=== PATIENT | male | born 2005 | race Caucasian/White ===

== ENCOUNTER 2023-03-13 21:54 | Observation (INO) | payer BC ==
[2023-03-13] MEDS ORDERED: SODIUM CHLORIDE 0.9% 1,000 ML IV STA (22:20)
--- NOTE | 2023-03-13 22:21 | ED ---
Abdominal Pain HPI - General Chief Complaint: Abdominal Pain Stated Complaint: Abdominal Pain Time Seen by Provider: 03/13/23 22:00 Source: patient, EMS Mode of arrival: EMS Limitations: no limitations - History of Present Illness Initial Comments: Hank is a 18-year-old male with no significant past medical history who came to our emergency department as a transfer from [place]. Patient went to [facility] for acute abdominal pain. Patient reports that he has been having abdominal pain for approximately 2 days, he attempted to eat a piece of toast with peanut butter on it this morning and developed severe stabbing abdominal pain. Mom reports that he was curled up in the position for about 4 hours before he agreed to go to the emergency department. At outside emergency Department blood work was obtained he had leukocytosis with a white count of 18, normal kidney and liver function and a computed tomography scan of abdomen which was suggestive of acute cholecystitis wasn't edematous distended gallbladder. Patient received antiemetics and antibiotics prior to transfer, he is resting comfortably now. - Related Data Home Medications Medication Instructions Recorded Confirmed No Known Home Medications 03/13/23 03/13/23 Allergies Allergy/AdvReac Type Severity Reaction Status Date / Time No Known Allergies Allergy Verified 03/13/23 22:20 Review of Systems ROS Statement: Those systems with pertinent positive or pertinent negative responses have been documented in the HPI. ROS Other: All systems not noted in ROS Statement are negative. Past Medical History Past Medical History: No Reported History History of Any Multi-Drug Resistant Organisms: None Reported Past Surgical History: No Surgical Hx Reported Past Psychological History: No Psychological Hx Reported Smoking Status: Never smoker Past Alcohol Use History: Occasional Past Drug Use History: Marijuana General Exam - General Exam Comments Initial Comments: Physical Exam GENERAL: Patient is well-developed and well-nourished HENT: Normocephalic, Atraumatic. EYES: PERRL, EOMI PULMONARY: Unlabored respirations. No audible rales rhonchi or wheezing was noted. CARDIOVASCULAR: There is a regular rate and rhythm without any murmurs gallops or rubs. ABDOMEN: Tenderness to palpation RUQ and RLQ SKIN: Skin is clear with no lesions or rashes and otherwise unremarkable. : Deferred NEUROLOGIC: Patient is alert and oriented x3. Moving all extremities spontaneously MUSCULOSKELETAL: Normal extremities with adequate strength and full range of motion. No lower extremity swelling or edema. No calf tenderness. PSYCHIATRIC: Normal psychiatric evaluation. Limitations: no limitations Course Vital Signs 03/13/23 22:05 Temperature 98.4 F Pulse Rate 77 Respiratory 18 Rate Blood Pressure 97/56 O2 Sat by Pulse 98 Oximetry Medical Decision Making - Medical Decision Making Was pt. sent in by a medical professional or institution (, PA, [employer], urgent care, hospital, or senior care...) When possible be specific @ -Yes, transfer from [facility] Dr. Oneal Did you speak to anyone other than the patient for history (EMS, parent, family, police, friend...)? What history was obtained from this source @ -Yes mother, EMS Did you review nursing and triage notes (agree or disagree)? Why? @ -I reviewed and agree with nursing and triage notes Were old charts reviewed (outside hosp., previous admission, EMS record, old EKG, old radiological studies, urgent care reports/EKG's, senior care records)? Report findings @ -No old charts were reviewed Differential Diagnosis (chest pain, altered mental status, abdominal pain women, abdominal pain men, vaginal bleeding, weakness, fever, dyspnea, syncope, headache, dizziness, GI bleed, back pain, seizure, CVA, palpatations, mental health, musculoskeletal)? @ -Differential Abdominal Pain Men: Appendicitis, cholecystitis, diverticulosis, ischemic bowel, pancreatitis, hepatitis, UTI, gastroenteritis, AAA, incarcerated hernia, bowel obstruction, constipation, inflammatory bowel, hepatitis, peptic ulcer disease, splenic infarction, perforated viscus, testicular torsion, this is not meant to be an all-inclusive list EKG interpreted by me (3pts min.). @ -As above X-rays interpreted by me (1pt min.). @ -None done CT interpreted by me (1pt min.). @ -None done U/S interpreted by me (1pt. min.). @ -None done What testing was considered but not performed or refused? (CT, X-rays, U/S, labs)? Why? @ -Ultrasound was considered as its physical standard for imaging of the gallbladder however after discussion with the surgeon was felt that it is not necessary as the patient will need a cholecystectomy regardless of findings What meds were considered but not given or refused? Why? @ -None Did you discuss the management of the patient with other professionals (professionals i.e. , PA, [employer], lab, RT, psych nurse, transition social worker, digital retoucher, teacher, aoc aadc operations staff officer, case assistant)? Give summary @ -Yes, Dr. Fox Was smoking cessation discussed for >3mins.? @ -No Was critical care preformed (if so, how long)? @ -No Were there social determinants of health that impacted care today? How? (Homelessness, low income, unemployed, alcoholism, drug addiction, transportation, low edu. Level, literacy, decrease access to med. care, retirement, rehab)? @ -No Was there de-escalation of care discussed even if they declined (Discuss DNR or withdrawal of care, Hospice)? DNR status @ -No What co-morbidities impacted this encounter? (DM, HTN, Smoking, COPD, CAD, Cancer, CVA, ARF, Chemo, Hep., AIDS, mental health diagnosis, sleep apnea, morbid obesity)? @ -None Was patient admitted / discharged? Hospital course, mention meds given and route, prescriptions, significant lab abnormalities, going to OR and other pertinent info. @ -Admit Patient was seen and evaluated, history is obtained from patient and review of transfer packet. Patient with an acute cholecystitis, antibiotics, antiemetics, pain management and IV fluids were ordered. accepts the admission Undiagnosed new problem with uncertain prognosis? @ -No Drug Therapy requiring intensive monitoring for toxicity (Heparin, Nitro, Insulin, Cardizem)? @ -No Were any procedures done? @ -No Diagnosis/symptom? @ -Acute cholecystitis Acute, or Chronic, or Acute on Chronic? @ -default Uncomplicated (without systemic symptoms) or Complicated (systemic symptoms)? @ -default Side effects of treatment? @ -No Exacerbation, Progression, or Severe Exacerbation? @ -No Poses a threat to life or bodily function? How? (Chest pain, [place], DC, pneumonia, PE, COPD, DKA, ARF, appy, cholecystitis, CVA, Diverticulitis, Homicidal, Suicidal, threat to staff... and all critical care pts) @ -No Disposition Clinical Impression: Acute cholecystitis Disposition: ADMITTED IP TO THIS [facility] Condition: Stable Is patient prescribed a controlled substance at d/c from ED?: No Referrals: None,Stated [Primary Care Provider] - 1-2 days
[2023-03-13] MEDS ORDERED: PIPERACILLIN-TAZOBACTAM 3.375 GM in SODIUM CHLORIDE 0.9% 100 ML IVPB STA (22:22)
[2023-03-13] MEDS ORDERED: MORPHINE SULFATE 4 MG/ML SYRINGE IV PRN (22:46)
[2023-03-13] MEDS ORDERED: NALOXONE 0.4 MG/ML 1 ML VIAL IV PRN (22:46)
[2023-03-13] MEDS ORDERED: ONDANSETRON 4 MG/2 ML VIAL IVP PRN (22:46)
[2023-03-13] MEDS: SODIUM CHLORIDE 0.9% 1,000 ML IV SCH (23:18)
[2023-03-13 23:27] LABS: Basophils % (A) 0 %; Eosinophils # (A) 0.1 k/uL (0-0.7); Eosinophils % (A) 1 %; HCT 42.5 % (39.0-53.0); HGB 14.5 gm/dL (13.0-17.5); Lymphocytes % (A) 7 %; MCH 31.3 pg (25.0-35.0); MCHC 34.2 g/dL (31.0-37.0); MCV 91.3 fL (80.0-100.0); Mean Platelet Volume 7.6; Monocytes # (A) 0.7 k/uL (0-1.0); Monocytes % (A) 5 %; Neutrophils # (A) 12.6 k/uL (1.3-7.7); Neutrophils % (A) 87 %; Platelet Count 178 k/uL (150-450); RBC 4.65 m/uL (4.30-5.90); WBC 14.5 k/uL (4.0-11.0)
[2023-03-13 23:38] LABS: ALT 19 U/L (4-49); AST 20 U/L (17-59); African American GFR (CKD) >90 (>60 ml/min/1.73 sqM); Alkaline Phosphatase 59 U/L (38-126); Anion Gap 11 mmol/L; Blood Urea Nitrogen 8 mg/dL (9-20); Calcium 8.7 mg/dL (8.4-10.2); Carbon Dioxide 20 mmol/L (22-30); Chloride 106 mmol/L (98-107); Glucose 101 mg/dL (74-99); Lipase 31 U/L (23-300); Non-African American GFR(CKD) >90 (>60 ml/min/1.73 sqM); Potassium 4.1 mmol/L (3.5-5.1); Sodium 137 mmol/L (137-145); Total Bilirubin 0.7 mg/dL (0.2-1.3); Total Protein 6.4 g/dL (6.3-8.2)
[2023-03-14] MEDS: PIPERACILLIN-TAZOBACTAM 3.375 GM in SODIUM CHLORIDE 0.9% 100 ML IVPB SCH ×3 (06:45→23:26)
--- NOTE | 2023-03-14 09:46 | P.GSHP ---
History of Present Illness H&P Date: 03/14/23 CHIEF COMPLAINT: Abdominal HISTORY OF PRESENT ILLNESS: This is a 18-year-old male who presented to the hospital right upper quadrant abdominal pain 2 days. He was a transfer from [facility]. Patient had reported the pain as severe and stabbing. The computed tomography scan at [place] reports suggestive of acute cholecystitis. Patient had elevated white count. He had been having sweats with nausea and vomiting. He reports decrease in appetite. No prior surgical history. Denies any medical history. PAST MEDICAL HISTORY: See below PAST SURGICAL HISTORY: See below MEDICATIONS: See below ALLERGIES: See below SOCIAL HISTORY: No illicit drug use. REVIEW OF SYSTEMS: CONSTITUTIONAL: Denies fever or chills. HEENT: Denies blurred vision, vision changes, or eye pain. Denies hemoptysis CARDIOVASCULAR: Denies chest pain or pressure. RESPIRATORY: No shortness of breath. GASTROINTESTINAL: See HPI for pertinent findings HEMATOLOGIC: Denies bleeding disorders. GENITOURINARY: Denies any blood in urine or increased urinary frequency. SKIN: Denies pruitis. Denies rash. PHYSICAL EXAM: VITAL SIGNS: Reviewed GENERAL: Well-developed in no acute distress. ABDOMEN: Soft. Nondistended. Tenderness with palpation of the right upper quadrant NEUROLOGIC: Alert and oriented. Cranial nerves II through XII grossly intact. LABORATORY DATA: WBC 14.5 Hgb 14.5 platelets 178 Na 137 potassium 4.1 creatinine 0.64 LFTs normal lipase 31 IMAGING: ASSESSMENT: 1. Acute cholecystitis PLAN: -Patient is scheduled for laparoscopic cholecystectomy today with Dr. Mclean -Keep patient nothing by mouth -Continue IV antibiotics -Continue IV fluids -Continue supportive care Physician Toll Lineman note has been reviewed by physician. Signing provider agrees with the documented findings, assessment, and plan of care. Past Medical History Past Medical History: No Reported History History of Any Multi-Drug Resistant Organisms: None Reported Past Surgical History: No Surgical Hx Reported Past Psychological History: No Psychological Hx Reported Smoking Status: Never smoker Past Alcohol Use History: Occasional Past Drug Use History: Marijuana Medications and Allergies Home Medications Medication Instructions Recorded Confirmed Type No Known Home Medications 03/13/23 03/13/23 History Allergies Allergy/AdvReac Type Severity Reaction Status Date / Time No Known Allergies Allergy Verified 03/13/23 22:20 Surgical - Exam Vital Signs Temp Pulse Resp BP Pulse Ox 98.4 F 77 18 97/56 98 03/13/23 22:05 03/13/23 22:05 03/13/23 22:05 03/13/23 22:05 03/13/23 22:05 Results - Labs 03/13/23 23:00 03/13/23 23:00 Abnormal Lab Results - Last 24 Hours (Table) 03/13/23 03/13/23 Range/Units 23:00 23:00 WBC 14.5 H (4.0-11.0) k/uL Neutrophils # 12.6 H (1.3-7.7) k/uL Carbon Dioxide 20 L (22-30) mmol/L BUN 8 L (9-20) mg/dL Creatinine 0.64 L (0.66-1.25) mg/dL Glucose 101 H (74-99) mg/dL Diabetes panel 03/13/23 Range/Units 23:00 Sodium 137 (137-145) mmol/L Potassium 4.1 (3.5-5.1) mmol/L Chloride 106 (98-107) mmol/L Carbon Dioxide 20 L (22-30) mmol/L BUN 8 L (9-20) mg/dL Creatinine 0.64 L (0.66-1.25) mg/dL Glucose 101 H (74-99) mg/dL Calcium 8.7 (8.4-10.2) mg/dL AST 20 (17-59) U/L ALT 19 (4-49) U/L Alkaline Phosphatase 59 (38-126) U/L Total Protein 6.4 (6.3-8.2) g/dL Albumin 4.0 (3.5-5.0) g/dL Calcium panel 03/13/23 Range/Units 23:00 Calcium 8.7 (8.4-10.2) mg/dL Albumin 4.0 (3.5-5.0) g/dL Pituitary panel 03/13/23 Range/Units 23:00 Sodium 137 (137-145) mmol/L Potassium 4.1 (3.5-5.1) mmol/L Chloride 106 (98-107) mmol/L Carbon Dioxide 20 L (22-30) mmol/L BUN 8 L (9-20) mg/dL Creatinine 0.64 L (0.66-1.25) mg/dL Glucose 101 H (74-99) mg/dL Calcium 8.7 (8.4-10.2) mg/dL Adrenal panel 03/13/23 Range/Units 23:00 Sodium 137 (137-145) mmol/L Potassium 4.1 (3.5-5.1) mmol/L Chloride 106 (98-107) mmol/L Carbon Dioxide 20 L (22-30) mmol/L BUN 8 L (9-20) mg/dL Creatinine 0.64 L (0.66-1.25) mg/dL Glucose 101 H (74-99) mg/dL Calcium 8.7 (8.4-10.2) mg/dL Total Bilirubin 0.7 (0.2-1.3) mg/dL AST 20 (17-59) U/L ALT 19 (4-49) U/L Alkaline Phosphatase 59 (38-126) U/L Total Protein 6.4 (6.3-8.2) g/dL Albumin 4.0 (3.5-5.0) g/dL
[2023-03-14] MEDS: SODIUM CHLORIDE 0.9% 1,000 ML IV SCH (11:54)
[2023-03-14] MEDS ORDERED: HEPARIN SODIUM,PORCINE/PF 5,000 UNIT/0.5 ML SYRINGE SQ ONE (15:50)
[2023-03-14] MEDS ORDERED: IV FLUID CONTINUATION 1,000 ML IV ONE (16:00)
[2023-03-14] MEDS ORDERED: ONDANSETRON 4 MG/2 ML VIAL IVP ONE (16:22)
[2023-03-14] MEDS ORDERED: DEXAMETHASONE SOD PHOSPHATE 4 MG/ML 1 ML VIAL IVP ONE (16:22)
[2023-03-14] MEDS ORDERED: MIDAZOLAM 2 MG/2 ML VIAL ONE (16:43)
[2023-03-14] MEDS ORDERED: fentaNYL (PF) 50 MCG/ML 2 ML AMP ONE (16:43)
[2023-03-14] MEDS ORDERED: NEOSTIGMINE 1 MG/ML 10 ML VIAL ONE (16:43)
[2023-03-14] MEDS ORDERED: HEPARIN SODIUM,PORCINE 5,000 UNIT/ML 1 ML VIAL SQ ONE (16:43)
[2023-03-14] MEDS ORDERED: ROCURONIUM 10 MG/ML (5 ML VIAL) IV ONE (16:43)
[2023-03-14] MEDS ORDERED: LIDOCAINE 1% INJ 10MG/ML (20 ML MDV) ONE (16:43)
[2023-03-14] MEDS ORDERED: PROPOFOL 10 MG/ML 20 ML VIAL IV ONE (16:43)
[2023-03-14] MEDS ORDERED: GLYCOPYRROLATE 0.2 MG/ML 2 ML VIAL ONE (16:43)
[2023-03-14] MEDS ORDERED: SUCCINYLCHOLINE CHLORIDE 200 MG/10 ML VIAL IV ONE (16:43)
[2023-03-14] MEDS ORDERED: BUPIVACAINE (PF) 0.25% 30 ML VIAL SQ ONE (17:03)
[2023-03-14] MEDS ORDERED: LACTATED RINGERS 1,000 ML IV ONE ×2 (17:20→17:26)
--- NOTE | 2023-03-14 17:24 | P.OP ---
Date of Procedure: 03/14/23 Preoperative Diagnosis: Cholecystitis Postoperative Diagnosis: Cholecystitis Procedure(s) Performed: Laparoscopic cholecystectomy Anesthesia: XENIA Surgeon: Alexandr Mclean Estimated Blood Loss (ml): 10 Pathology: other (Gallbladder) Condition: stable Disposition: PACU Description of Procedure: The patient was placed on the operating table. The patient received a general endotracheal tube anesthesia. The patients abdomen was prepped and draped in the usual sterile fashion. Through an infraumbilical stab incision, the fascia of the anterior abdominal wall was grasped with a pair of Kochers and then the Veress needle was placed in the peritoneal cavity. Position of the Veress needle was confirmed with positive drop test. The abdomen was then insufflated. After adequate insufflation, the 10 mm trocar was placed in the peritoneal cavity. Following this the laparoscope was placed in the peritoneal cavity. The patient was placed in the head-up, right side up position and then a 5 mm trocar was placed in the right lateral and right subcostal position under direct visualization. A 8 mm trocar was placed in the epigastric position. The gallbladder was grasped in the fundus and infundibulum. The patient had a very large liver. Traction on the gallbladder was placed in the lateral and the cephalad positions. The triangle of Calot was visualized.. The cystic duct was bluntly dissected until the union of the cystic duct and common bile duct was seen. A critical view of safety was achieved. The cystic duct was then divided and sealed with the Harmonic scissors. A PDS Endoloop was then placed throughout the cystic duct stump. The cystic artery divided and sealed with the Harmonic scissors. The gallbladder was then removed from the liver bed using Harmonic scissors. The gallbladder was then extracted through the epigastric port site. Operative field was checked for any bleeding spots and Harmonic scissors was used to coagulate the liver bed. The abdomen was irrigated. The trocars were removed. The skin was closed using interrupted 3-0 Vicryl suture. Dermabond dressing were applied. The patient tolerated the procedure well.
[2023-03-14] MEDS ORDERED: HYDROmorphone 1 MG/ML 1 ML SYRINGE IVP PRN (17:26)
[2023-03-14] MEDS ORDERED: ONDANSETRON 4 MG/2 ML VIAL IVP PRN (17:26)
[2023-03-14] MEDS ORDERED: ACETAMINOPHEN TAB 325 MG TAB PO PRN (17:26)
[2023-03-14] MEDS ORDERED: HYDROcodone/APAP 5-325MG 1 EACH TAB PO PRN (17:26)
[2023-03-14] MEDS ORDERED: NALOXONE 0.4 MG/ML 1 ML VIAL IV PRN (17:26)
[2023-03-14] MEDS: HYDROmorphone 0.5 MG/0.5 ML SYRINGE IVP PRN ×2 (18:03→18:09)
[2023-03-14] MEDS: KETOROLAC 15 MG/ML 1 ML VIAL IVP SCH ×2 (18:50→23:25)
[2023-03-15 03:05] VITALS: RESP 19
[2023-03-15] MEDS: SODIUM CHLORIDE 0.9% 1,000 ML IV SCH ×2 (04:07→09:06)
[2023-03-15] MEDS: KETOROLAC 15 MG/ML 1 ML VIAL IVP SCH ×2 (05:49→12:41)
[2023-03-15] MEDS: PIPERACILLIN-TAZOBACTAM 3.375 GM in SODIUM CHLORIDE 0.9% 100 ML IVPB SCH (06:45)
[2023-03-15 07:38] VITALS: BP 128/60; PULSE 57; TEMP 98
[2023-03-15] MEDS ORDERED: ENOXAPARIN 40 MG/0.4 ML SYRINGE SQ SCH (09:00)
[2023-03-15 10:17] LABS: Basophils % (A) 0 %; Eosinophils % (A) 0 %; HCT 44.7 % (39.0-53.0); HGB 15.1 gm/dL (13.0-17.5); Lymphocytes # (A) 1.7 k/uL (1.0-4.8); Lymphocytes % (A) 15 %; MCH 31.1 pg (25.0-35.0); MCHC 33.8 g/dL (31.0-37.0); MCV 91.9 fL (80.0-100.0); Monocytes # (A) 0.8 k/uL (0-1.0); Monocytes % (A) 7 %; Neutrophils % (A) 77 %; Platelet Count 171 k/uL (150-450); RBC 4.87 m/uL (4.30-5.90); RDW 11.8 % (11.5-15.5); WBC 11.6 k/uL (4.0-11.0)
--- NOTE | 2023-03-15 11:24 | P.DS ---
Providers Date of admission: 03/13/23 22:46 Expected date of discharge: 03/15/23 Attending physician: Alexandr Mclean Consults: 03/14/23 17:26 Consult Physician Routine Consulting Provider: Hilaria Sun Consult Reason/Comments: Medical management Do you want consulting provider notified?: Yes Primary care physician: Stated None Hospital Course: Discharge diagnosis 1. Acute Cholecystitis status post laparoscopic cholecystectomy Hospital course This is a 18-year-old male who presented to the hospital right upper quadrant abdominal pain 2 days. He was a transfer from [facility]. The computed tomography scan at [place] reports suggestive of acute cholecystitis. Patient is status post laparoscopic cholecystectomy. Patient tolerated surgery well. Pain is controlled. He is tolerating diet. He has been up and ambulating. He is afebrile. He is stable for discharge. Please refer to chart for any further details. Physician Audio Director note has been reviewed by physician. Signing provider agrees with the documented findings, assessment, and plan of care. Patient Condition at Discharge: Stable Plan - Discharge Summary Discharge Rx Participant: No New Discharge Prescriptions: New Acetaminophen Tab [Tylenol Tab] 650 mg PO Q4H PRN #30 tablet PRN Reason: Pain Ibuprofen [Motrin] 600 mg PO Q8HR PRN #30 tab PRN Reason: Pain Discharge Medication List Acetaminophen Tab [Tylenol Tab] 650 mg PO Q4H PRN #30 tablet 03/15/23 [Rx] Ibuprofen [Motrin] 600 mg PO Q8HR PRN #30 tab 03/15/23 [Rx] Follow up Appointment(s)/Referral(s): None,Stated [Primary Care Provider] - 1-2 days Alexandr Mclean MD [STAFF PHYSICIAN] - 1 Week Patient Instructions/Handouts: Laparoscopic Cholecystectomy (DC) Activity/Diet/Wound Care/Special Instructions: No lifting over 10 pounds Shower daily. No soaking or tub baths for 2 weeks Very light activity until you are reevaluated at your follow up appointment with your surgeon Discharge Disposition: HOME SELF-CARE
--- NOTE | 2023-03-16 16:25 | P.CONS ---
History of Present Illness - Reason for Consult Consult date: 03/15/23 Medical management, postop cholecystectomy - History of Present Illness This is a pleasant 18-year-old male who presented to the emergency department with abdominal pain and admitted under surgery as a transfer from [place] as patient had some abdominal pain that have been ongoing over the last 2 days and brought here for further evaluation and surgical consult. There was a CT of the abdomen that was suggestive of acute cholecystitis with distended gallbladder. Patient is status post laparoscopic cholecystectomy and has been cleared by general surgery for discharge. Patient having some minimal abdominal pain al though tolerating on current regimen. Patient has been up and walking and would recommend using incentive spirometer at least 10 times every hour while awake. Patient is currently afebrile denies any chest pain or shortness of breath and is tolerating diet. Patient reports probably being discharged later today. Patient with no significant past medical history other than occasionally using marijuana and drinking on the weekends. Patient is medically stable for discharge today. Review Of Systems: Constitutional: No fever, no chills, no night sweats. No weight change. No weakness, fatigue or lethargy. No daytime sleepiness. EENT: No headache. No blurred vision or double vision, no loss of vision. No loss of Hearing, no ringing in the ears, no dizziness. No nasal drainage or congestion. No epistaxis. No sore throat. Lungs: No shortness of breath, cough, no sputum production. No wheezing. Cardiovascular: No chest pain, no lower extremity edema. No palpitations. No paroxysmal nocturnal dyspnea. No orthopnea. No lightheadedness or dizziness. No syncopal episodes. Abdominal: Reported abdominal pain that has resolved. No nausea, vomiting. No diarrhea. No constipation. No bloody or tarry stools.. No loss of appetite. Genitourinary: No dysuria, increased frequency, urgency. No urinary retention. Musculoskeletal: No myalgias. No muscle weakness, no gait dysfunction, no frequent falls. No back pain. No neck pain. Integumentary: No wounds, no lesions. No rash or pruritus. No unusual bruising. No change in hair or nails. Neurologic: No aphasia. No facial droop. No change in mentation. No head injury. No headache. No paralysis. No paresthesia. Psychiatric: No depression. No anxiety. No mood swings. Endocrine: No abnormal blood sugars. No weight change. No excessive sweating or thirst. No cold intolerance. PHYSICAL EXAMINATION: GENERAL: The patient is alert and oriented x4, Well developed, well nourished. HEENT: Pupils are round and equally reacting to light. EOMI. no scleral icterus. No conjunctival pallor. Normocephalic, atraumatic. No pharyngeal erythema. No thyromegaly. CARDIOVASCULAR: S1 and S2 muffled PULMONARY: Breath sounds clear to auscultation with no wheezing or rhonchi noted. ABDOMEN: soft. Mildly tender on exam. And laparoscopic surgical sites are dry and intact. non-distended, normoactive bowel sounds. No palpable organomegaly. MUSCULOSKELETAL: No joint swelling or deformity. EXTREMITIES: No cyanosis, clubbing, or pedal edema. Diffuse weakness SKIN: No rashes. Assessment: Abdominal pain with concerns for acute cholecystitis with distended gallbladder, status post laparoscopic cholecystectomy Leukocytosis, secondary to above, trending down History of marijuana use GI prophylaxis DVT prophylaxis Full code Plan: Patient was admitted under surgical services and sent here from [place] for surgical intervention and is status post laparoscopic cholecystectomy Patient has been up and walking and encouraged increased activity as tolerated Will add incentive spirometer encourage the patient to continue using at least 10 times every hour while awake Patient reports currently does not have a primary care provider and instructed mother at bedside to establish with one and follow-up with surgery outpatient Continue with surgery recommendations on restrictions until follow-up Patient is medically stable for discharge Today thank you kindly for this consultation. We will continue to follow with surgery during hospitalization The impression and plan of care has been dictated by Kate Davies, nurse practitioner as directed. Dr. Dino MD I have performed a history and examination and MDM of this patient, discussed the same with the dictator, and agree with the dictator's assessment and plan as written ,documented as a scribe. Based on total visit time, I have performed more than 50% of the visit. Any additional findings or plans will be noted. Past Medical History Past Medical History: No Reported History History of Any Multi-Drug Resistant Organisms: None Reported Past Surgical History: Cholecystectomy Past Anesthesia/Blood Transfusion Reactions: No Reported Reaction Past Psychological History: No Psychological Hx Reported Smoking Status: Never smoker Past Alcohol Use History: Occasional Past Drug Use History: Marijuana Medications and Allergies Home Medications Medication Instructions Recorded Confirmed Type Acetaminophen Tab [Tylenol Tab] 650 mg PO Q4H PRN #30 tablet 03/15/23 Rx Ibuprofen [Motrin] 600 mg PO Q8HR PRN #30 tab 03/15/23 Rx Allergies Allergy/AdvReac Type Severity Reaction Status Date / Time No Known Allergies Allergy Verified 03/13/23 22:20 Physical Exam Vitals: Vital Signs Temp Pulse Pulse Resp BP BP Pulse Ox 03/15/23 07:06 98.0 F 57 L 19 128/60 98 03/15/23 01:35 97.6 F 56 L 19 109/66 100 03/14/23 20:54 65 134/69 03/14/23 20:39 52 L 125/74 03/14/23 20:24 65 112/62 03/14/23 20:10 61 122/67 99 03/14/23 19:54 89 120/68 99 03/14/23 19:39 58 L 127/71 97 03/14/23 19:24 55 L 128/75 98 03/14/23 19:09 55 L 137/77 99 03/14/23 18:55 97.8 F 58 L 16 146/78 100 03/14/23 18:32 57 L 21 121/68 98 03/14/23 18:17 59 L 22 130/72 99 03/14/23 18:02 58 L 18 131/83 100 03/14/23 17:47 97.9 F 68 18 152/77 100 03/14/23 16:13 97.6 F 60 20 116/788 99 03/14/23 15:06 98.0 F 54 L 18 102/57 98 03/14/23 11:52 98.4 F 69 18 104/62 98 03/14/23 10:44 73 20 104/48 98 Intake and Output 03/14/23 03/15/23 03/15/23 22:59 06:59 14:59 Intake Total 1000 Output Total 10 Balance 990 Intake: IV 1000 Output: Estimated Blood Loss 10 Other: # Voids 1 Weight 51.256 kg Results CBC & Chem 7: 03/15/23 09:35 03/13/23 23:00
== END 2023-03-15 13:06 | disposition home or self-care (01) ==
LOC: EC 21:54 → 4SSUR 22:46 → INTOOBSV 22:46 → 4SSUR 03-14 14:35
PROVIDERS: ADMIT Surgery; ATTEND Surgery
DX: K81.2 Acute cholecystitis with chronic cholecystitis (principal); F17.210 Nicotine dependence, cigarettes, uncomplicated
CPT/HCPCS: 47562; 96366 ×3; 96365; 99285; 86900; 86901; 88304; 80053; 83690; 85025 ×2; 86850; G0378 ×3; J2543 ×3; J2250; J0330; J1644; J1100; J2710; J2405; J2001; J3010; J1170 ×2; J1885 ×2; J2704; J0665